=== PATIENT | male | born 2000 | race Caucasian/White ===

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

== ENCOUNTER 2024-10-08 16:43 | Emergency (ER) | payer SELFPAY ==
[2024-10-08 17:04] VITALS: BP 149/98; PULSE 69
== END 2024-10-08 17:36 | disposition home or self-care (01) ==
LOC: JP.ED 16:43
DX: K04.7 Periapical abscess without sinus (principal)
CPT/HCPCS: 99282